=== PATIENT | female | born 1995 | race Caucasian/White ===

== ENCOUNTER → 2022-05-26 08:04 | Outpatient (CLI) | payer OTHER, SELFPAY ==
--- NOTE | ~2022-05-26 | US_ITS ---
EXAMINATION: US right upper quadrant DATE: 05/26/2022 08:29 INDICATION: Right upper quadrant pain TECHNIQUE: Multiple grayscale and Doppler ultrasound images of the abdomen were obtained. COMPARISON: None available FINDINGS: Bowel gas obscures visualization of the pancreas. The visualized portions of the pancreas a re unremarkable. The liver is normal with normal echogenicity and echotexture. No surface nodularity. Normal hepatopetal flow in the main portal vein. The gallbladder is normal with no abnormal wall thi ckening, pericholecystic fluid or stones. The normal common bile duct measures 3 mm. There was no son ographic Denise sign. IMPRESSION: 1. Normal sonographic study of the gallbladder. Reviewed, dictated and finalized at location F.
== END ==
PROVIDERS: PCP Obstetrics & Gynecology Gynecology; Visit Provider Obstetrics & Gynecology Gynecology
DX: R10.11 Right upper quadrant pain (principal)
CPT/HCPCS: 76705

== ENCOUNTER → 2022-07-11 13:20 | Outpatient (CLI) | payer OTHER, SELFPAY ==
--- NOTE | ~2022-07-11 | CT_ITS ---
EXAMINATION: CT abdomen pelvis w con DATE: 07/11/2022 13:54 INDICATION: Right upper quadrant abdominal pain. Elevated serum lipase. TECHNIQUE: Computed tomography (CT) of the abdomen and pelvis was performed with 100 CC Omnipaque 350 intravenous contrast. Automated exposure control and iterative reconstruction technique were employe d. Exam dose: 678.11 mGy-cm total exam DLP. COMPARISON: 05/26/2022 right upper quadrant abdominal ultrasound examination FINDINGS: The lung bases are clear. Heart size is normal. No pericardial or pleural effusion. The liver, gallbladder, bile ducts, spleen, pancreas, pancreatic duct, and adrenal glands and kidneys appear normal. Normal caliber of the abdominal aorta. Approximately 2 cm right ovarian cyst. The uterus and adnexal areas are otherwise unremarkable. Urina ry bladder is relatively evacuated. No bowel obstruction or intraperitoneal free air. Small fat-containing umbilical hernia. Included skeletal structures are unremarkable. No intraperitoneal or retroperitoneal or pelvic mass lesion or adenopathy or ascites is noted. IMPRESSION: 2 cm right ovarian cyst The pancreas appears normal. Normal CT pancreas examination does not exclude pancreatitis. Reviewed, dictated and finalized at Location A. Reviewed, dictated and finalized at location B. TRACER IMPRESSION: 2 cm right ovarian cyst The pancreas appears normal. Normal CT pancreas examination does not exclude pa ncreatitis.
== END ==
PROVIDERS: PCP Family Medicine; Visit Provider Physician Assistant
DX: R10.9 Unspecified abdominal pain (principal); R74.8 Abnormal levels of other serum enzymes; N83.201 Unspecified ovarian cyst, right side
CPT/HCPCS: 74177; Q9967

== ENCOUNTER 2022-09-05 12:23 | Emergency (ER) | payer OTHER, SELFPAY ==
--- NOTE | ~2022-09-05 | CT_ITS ---
EXAMINATION: CT abdomen pelvis w con DATE: 09/05/2022 15:21 INDICATION: Right upper quadrant abdominal pain TECHNIQUE: Computed tomography (CT) of the abdomen and pelvis was performed with 100 mL Omnipaque-350 intravenous contrast. Automated exposure control and iterative reconstruction technique were employe d. The dose-length product was 518.56 mGy-cm. COMPARISON: 07/11/2022 FINDINGS: Lung bases are clear. Heart size is normal. No pericardial or pleural effusion. Liver, gallbladder, s pleen, pancreas, bilateral adrenal glands and kidneys are normal. Bowels including the appendix are n ormal. Bladder, anteverted uterus and bilateral adnexa are unremarkable. No free intraperitoneal gas or fluid. No pathologically enlarged abdominal or pelvic lymphadenopathy. Partially visualized mild l ower thoracic dextrocurvature with minimal lumbar levocurvature. Mild thoracic and minimal lumbar spo ndylosis. IMPRESSION: 1. No acute intra-abdominal/pelvic process. Reviewed, dictated and finalized at location L. K PATROL
--- NOTE | ~2022-09-05 | US_ITS ---
Limited Abdominal Sonogram: Real-time sonographic imaging of the right upper quadrant was performed. Clinical History: Abdominal pain Findings: The liver appears normal with no evidence of mass lesion or bile duct dilatation. Main por coretta vein demonstrates normal direction of flow. The gallbladder is partially distended, and appears n ormal with no evidence of gallstone or wall thickening. The common bile duct measures 3 mm. The visu alized pancreas, aorta, and IVC are unremarkable. Impression: No significant abnormality seen. Reviewed, dictated and finalized at location M. INE TACK PULLER Impression: No significant abnormality seen.
[2022-09-05 13:18] LABS: Basophils Percent Auto 0.2 % (0.2-1.2); Eosinophils Absolute Auto 0.1 K/mm3 (0-0.3); Eosinophils Percent Auto 0.5 % (0-4.4); Hematocrit 39.6 % (37.0-47.0); Hemoglobin 13.3 g/dL (12.0-15.0); Immature Granulocyte Absolute 0.03 K/mm3 (0.00-0.031); Immature Granulocyte Percent A 0.3 % (0-0.5); Immature Platelet Fraction Pct 3.4 % (0.9-11.2); Lymphocytes Absolute Auto 1.95 K/mm3 (0.9-3.2); Lymphocytes Percent Auto 19.8 % (18.3-44.2); Mean Corpuscular HGB Conc 33.6 g/dl (32-36); Mean Corpuscular Hemoglobin 28.9 pg (26-34); Mean Corpuscular Volume 86.1 fl (80-100); Mean Platelet Volume 10.2 fl (7.4-10.4); Monocytes Absolute Auto 0.7 K/mm3 (0.1-0.6); Monocytes Percent Auto 6.7 % (2.6-8.5); Neutrophils Absolute Auto 7.2 K/mm3 (1.3-6.7); Neutrophils Percent Auto 72.5 % (45.5-73.1); Platelet Count Result 271 k/mm3 (150-375); Red Cell Distribution Width 13.1 % (11.5-14.5); White Blood Count 9.9 K/mm3 (4.5-10.0)
[2022-09-05 13:30] LABS: Alanine Aminotransferase 17 U/L (6-35); Albumin Level 4.4 g/dL (3.5-5.1); Alkaline Phosphatase 38 U/L (38-126); Anion Gap 8 mmol/L (8-16); Aspartate Amino Transferase 32 U/L (14-36); Bilirubin,Total 0.5 mg/dL (0.2-1.3); Blood Urea Nitrogen 8 mg/dL (7-17); Calcium 9.6 mg/dL (8.4-10.2); Carbon Dioxide 25 mmol/L (22-30); Chloride 105 mmol/L (98-107); Estimated Glomerular Filt Rate > 60; Glucose 92 mg/dL (65-110); Lipase 143 U/L (23-300); Potassium 4.5 mmol/L (3.4-5.0); Sodium 138 mmol/L (137-145)
--- NOTE | 2022-09-05 13:31 | ED.ABDPAIN ---
HPI - Abdominal Pain General Chief Complaint: Abdominal Pain Stated Complaint: RUQ pain Time Seen by Provider: 09/05/22 12:59 Source: patient Mode of arrival: ambulatory Limitations: no limitations History of Present Illness HPI narrative: Patient is a 27-year-old female who presents to the ED with c/o RUQ pain. Patient reports she has been dealing with pain in her right upper abdomen for the last few months. She has had negative CT scans and ultrasounds of her abdomen/gallbladder. She was scheduled to see a GI specialist on Sunday. Over the last 2 days, patient has had worsening and more persistent pain in her right upper abdomen. Pain radiates to her right mid back and right shoulder. She has been taking Tylenol with minimal relief. She also reports having nausea and diarrhea, denies fever, vomiting, rectal bleeding, urinary symptoms, chest pain, difficulty breathing. Related Data Home Medications Medication Instructions Recorded Confirmed norethindrone 1 mg-ethinyl 1 tablet PO DAILY 06/28/22 06/28/22 estradiol 20 mcg (21)-iron 75 mg (7) tablet (Blisovi Fe 09/01 ([birth year])) rizatriptan 10 mg tablet See Rx Instructions PO .COMPLEX 06/28/22 06/28/22 spironolactone 100 mg tablet 100 mg PO BID 06/28/22 06/28/22 Allergies Allergy/AdvReac Type Severity Reaction Status Date / Time steroids AdvReac Severe heartburn Uncoded 09/05/22 12:24 Review of Systems Review of Systems: CONSTITUTIONAL: Denies fever, chills, or sweats. CARDIOVASCULAR: Denies chest pain. RESPIRATORY: Denies cough or dyspnea. GASTROINTESTINAL: See HPI. GENITOURINARY: Denies dysuria or hematuria. SKIN: Denies rash or itching. MUSCULOSKELETAL: See HPI. All systems reviewed & are unremarkable except as noted in HPI and below PMFSH Past Medical History Medical History Chiari malformation Surgical History Surgical History History of tonsillectomy Family History Family History Father DVT of leg (deep venous thrombosis) Grandparent Diabetes mellitus Grandparent Leukemia Social History Social History Smoking status: Never smoker Alcohol intake: current Alcohol use details: socially; once a month Substance use: never Substance use type: does not use Occupation/Education: occupation Additional occupation/education comments: IT Exam Narrative: GENERAL: Well appearing, obese, non-toxic, in no acute distress. HEAD: Normocephalic, atraumatic. NECK: Supple. No adenopathy, no masses. RESPIRATORY: Airway patent, respirations nonlabored. Clear to auscultation bilaterally, no rales, rhonchi, wheezing. CARDIOVASCULAR: Regular rate and rhythm without murmurs, rubs, or gallops. Peripheral pulses 2+ and equal bilaterally. ABDOMINAL: Soft, tenderness in epigastric region and right upper quadrant, no significant worsening of tenderness with Denise sign testing, no cessation of inspiration, nondistended, no hepatosplenomegaly. Normoactive BS. MUSCULOSKELETAL: Moves all extremities. Strength/ROM intact without gross deformities. SKIN: Warm, dry, normal color. No rashes. NEURO: A&O X3. Speech clear. Cranial nerves II-XII grossly intact. Steady gait. No ataxic movements. PSYCHIATRIC: Appropriate mood and affect. Normal interaction. MDM - Abdominal Pain MDM Narrative Medical decision making narrative: Patient presented to ED with 2-day history of right upper quadrant abdominal pain, history of recent similar pain as well, concerned for GB etiology. Vitals stable upon arrival. Afebrile. No leukocytosis, WBC 9.9. CMP unremarkable. Normal LFTs. Lipase within normal limits. UA with 1+ leuks, 4-6 wbc. Patient without urinary symptoms at this time, will send for culture to determine need for Tx, doubt this is causin
[2022-09-05] MEDS: SODIUM CHLORIDE 0.9% IV 1,000 ML 999 ML IV CONT (13:39)
[2022-09-05] MEDS: ONDANSETRON INJ 4 MG/2 ML VIAL IV PUSH (13:39)
[2022-09-05] MEDS: MORPHINE SULFATE (*CRX) 4 MG/ML INJ IV PUSH (13:40)
[2022-09-05 14:55] LABS: Appearance Urine Slightly Cloudy (Clear); Bilirubin Urine Negative (Negative); Blood Urine Negative (Negative); Color Urine Yellow (Yellow); Glucose Urine UA Negative (Negative); Ketones Urine Negative (Negative); Leukocyte Esterase Ur 1+ LEU/UL (Negative); Nitrate Urine Negative (Negative); Protein Urine Negative (Negative); Urobilinogen Urine 0.2 mg/dL (<2.0); pH Urine 6.5 (5.0-9.0)
[2022-09-05 15:03] LABS: Bacteria Urine Trace /hpf; Mucus Urine Rare /lpf; RBC Urine 0-2 /hpf (0-2); Squamous Epithelial Cell Urine Few /hpf (Few)
[2022-09-05 15:04] LABS: Add Urine Microscopic? YES
[2022-09-05 15:05] LABS: D Dimer 0.35 ug/mL (<0.48)
== END 2022-09-05 16:19 | disposition home or self-care (01) ==
PROVIDERS: Emergency Medicine; Emergency Provider Physician Assistant; PCP Family Medicine
DX: R10.11 Right upper quadrant pain (principal)
CPT/HCPCS: 36415; 74177; 76705; 80053; 81001; 81025; 83690; 85025; 85055; 85380; 87086; 87088; 96361; 96374; 96375; 99284; J2270; J2405; J7030; Q9967

== ENCOUNTER 2022-09-18 09:45 | Outpatient (CLI) | payer OTHER, SELFPAY ==
--- NOTE | ~2022-09-18 | NM_ITS ---
EXAMINATION: NM hepatobiliary wo pharm DATE: 09/18/2022 12:21 INDICATION: Postprandial right upper quadrant abdominal pain. COMPARISON: CT and ultrasound 09/05/2022 TECHNIQUE: 4.9 mCi Tc-99m mebrofenin (Choletec) was administered intravenously. Scintigraphic images of the abdomen were obtained for one hour. Then, the patient drank 8 oz Ensure, and imaging was cont inued for 60 minutes. FINDINGS: There is normal clearance of radiotracer from the blood pool. There is homogeneous tracer u ptake by the liver. Activity progresses to the bowel and gallbladder. Gallbladder ejection fraction (GBEF) was 35%. Note that with this technique, normal GBEF >= 33%. IMPRESSION: 1. Normal hepatobiliary scintigraphy. Reviewed, dictated and finalized at location A. HAND
== END 2022-09-18 09:46 | disposition home or self-care (01) ==
PROVIDERS: PCP Family Medicine; Visit Provider Nurse Practitioner Family
DX: R10.11 Right upper quadrant pain (principal)
CPT/HCPCS: 78226; A9537

== ENCOUNTER 2022-10-04 00:31 | Day surgery (SDC) | payer OTHER, SELFPAY ==
[2022-09-18 14:26] VITALS: BMI 31.4
[2022-10-04 12:45] VITALS: BP 123/69; PULSE 70; RESP 14; TEMP 36.2; O2SAT 100
[2022-10-04] MEDS: LACTATED RINGERS 1,000 ML 150 ML IV CONT (12:54)
--- NOTE | 2022-10-04 12:55 | WPDANESEPPF ---
Anes - Initial Pre Proc Eval Procedure: Operation Date: 10/04/22 14:00 Proposed Procedures p Esophagogastroduodenoscopy - Mian Cheng MD Date/Time: 10/04/22 12:55 Surgeon: Mian Cheng MD Pre Op Diagnosis: Rt Upper Quad pain Patient Data Age: 27 Gender: F Height: 1.57 m Weight: 78.1 kg Last Vital Signs Temp 97.1 F L 10/04/22 12:45 Pulse 70 10/04/22 12:45 Resp 14 10/04/22 12:45 BP 123/69 10/04/22 12:45 Pulse Ox 100 10/04/22 12:45 O2 Del Method Room Air 10/04/22 12:45 Allergies Allergy/AdvReac Type Severity Reaction Status Date / Time steroids AdvReac Severe Gastrointestinal Uncoded 10/04/22 12:44 Upset Home Medications Medication Instructions Recorded Confirmed Type norethindrone 1 mg-ethinyl 1 tablet PO DAILY 06/28/22 09/18/22 History estradiol 20 mcg (21)-iron 75 mg (7) tablet (Blisovi Fe 09/01 ()) rizatriptan 10 mg tablet See Rx Instructions PO .COMPLEX 06/28/22 09/18/22 History PRN Headache spironolactone 100 mg tablet 100 mg PO BID 06/28/22 09/18/22 History ondansetron 4 mg disintegrating 4 mg PO Q8H PRN nausea and 09/05/22 09/18/22 Rx tablet vomiting #20 tabs Patient hx anesthesia problems: none Family hx anesthesia problems: none Results Review: All pre-operative results and documents have been reviewed as part of the pre-operative evaluation. [facility] Past Medical History Medical History (Updated 09/11/22 @ 15:13 by José Smith) Acute migraine Chiari malformation Surgical History Surgical History (Updated 09/11/22 @ 15:14 by José Smith) H/O brain surgery History of tonsillectomy Family History Family History Father DVT of leg (deep venous thrombosis) Grandparent Diabetes mellitus Grandparent Leukemia Social History Social History (Reviewed 09/05/22 @ 13:38 by CANDIDA Mijares Smoking status: Never smoker Alcohol intake: current Alcohol use details: socially; once a month Substance use: never Substance use type: does not use Occupation/Education: occupation Additional occupation/education comments: IT Spiritual care concerns: No Anes - Eval Final PreProcedure Day of Procedure 10/04/22 12:55 Patient weight: obese Heart: regular rate and rhythm Lungs: clear to auscultation Neurological: alert and oriented Last oral intake: >/= 8 hours ASA classification: II Emergent: no Anesthetic plan: proceed Anesthesia type and monitoring: general GIVS and standard monitoring Results Review: All pre-operative results and documents have been reviewed as part of the pre-operative evaluation. Informed Consent: The patient's anesthetic plan and its attendant risks and benefits were discussed with the patient/family/POA. Questions were solicited and answers provided to the satisfaction of the patient/family/POA.
--- NOTE | 2022-10-04 13:25 | WPDHPUPDATE1 ---
History and Physical Update Update Date/Time: 10/04/22 13:25 History and Physical has been reviewed, including an updated exam of the patient. There are NO changes in the patient's condition. Risks, benefits, and alternatives have been discussed and questions answered. Patient agrees to proceed with procedure.
[2022-10-04] MEDS: BENZOCAINE (*SP) 60 ML SPRAY CAN (HURRICAINE) 1 SPRAY MUCOUS MEM (13:26)
[2022-10-04 13:36] VITALS: BP 108/66; PULSE 90; RESP 22; O2SAT 100
[2022-10-04 13:46] VITALS: BP 101/68; PULSE 78; RESP 22; O2SAT 100
[2022-10-04 13:56] VITALS: BP 128/84; PULSE 80; RESP 22; O2SAT 100
== END 2022-10-04 14:07 | disposition home or self-care (01) ==
PROVIDERS: PCP Family Medicine; Visit Provider Internal Medicine Gastroenterology
PROC: 0DJ08ZZ Inspection of Upper Intestinal Tract, Via Natural or Artificial Opening Endoscopic (ICD-10-PCS; CPT 43235; principal; 2022-10-04 14:00)
DX: R10.11 Right upper quadrant pain (principal); E66.9 Obesity, unspecified; Z68.31 Body mass index [BMI] 31.0-31.9, adult
CPT/HCPCS: 43239; 88305; J2704; J7120

== ENCOUNTER 2022-10-16 15:22 | Outpatient (CLI) | payer OTHER, SELFPAY ==
[2022-10-16 15:53] LABS: Amylase 87 U/L (30-110)
== END 2022-10-16 15:23 | disposition home or self-care (01) ==
LOC: ANHSURGERY 15:26
PROVIDERS: PCP Family Medicine; Visit Provider Surgery
DX: K81.1 Chronic cholecystitis (principal); Z01.818 Encounter for other preprocedural examination
CPT/HCPCS: 36415; 82150; 86850; 86900; 86901

== ENCOUNTER 2022-10-18 00:51 | Day surgery (SDC) | payer OTHER, SELFPAY ==
[2022-10-12 12:33] VITALS: BMI 31.1
--- NOTE | 2022-10-12 12:38 | PC.NURSE ---
Report to the Outpatient Waiting Room, entrance under the green pavilion located off [facility], at time 10:00 on date 10/18/22. Planned Procedure Time: 12:00. Time changes happen often and if your time is changed the preop area will call you the afternoon before. - You and your visitor will be asked to self-screen and do not enter if you have any COVID symptoms. - Only one visitor is requested with a max of two and NO children visitors are allowed at this time. - The patient visitor may be requested to leave or wait in car when not with patient due to distancing restrictions. - A mask is optional within the hospital at this time. Patients may have clear liquids (water, carbonated beverages, clear teas, apple juice) until 3 hours prior to surgery (9:00) with a maximum of 20 ounces. - No food from midnight until time of surgery Take the following medications with a SIP of water the morning of surgery: NONE DO NOT STOP ANY OF YOUR OTHER PRESCRIPTION MEDICATIONS PRIOR TO SURGERY?EXCEPT THE FOLLOWING Medications to discontinue per physician: N/A Date to take last dose: N/A Please no make-up, nail pashto, hairspray, perfume, deodorant, or body powder the day of surgery. No jewelry (including any body piercings) or valuables the day of surgery, leave them at home. Please take a shower or bath the night before, or the morning of, surgery with an antibacterial soap (HIBICLENS). Wear comfortable, loose fitting clothing. - Jewelry must be removed prior to entering the operating room. Rings and piercings that are not removed may be cut off. - The hospital will not accept responsibility for valuables. - Please leave all valuables, including medications, at home the day of surgery. If you are going home after surgery, a licensed wrecker driver must drive you home. - NO public transportation without another adult if you receive anesthesia. - We recommend that an adult stay with you for 24 hours following discharge. - We also recommend that you do not drive, make important decision, drink alcoholic beverages, or take any drugs that were not prescribed by your health care provider for at least 24 hours after your discharge time. Follow any additional instructions given to you from your surgeon. If you or anyone in your household have experienced Covid symptoms in the past week, please notify your surgeon or the nurse liaison at the phone number below for possible testing. Telephone instructions given to PT - BARRY EAVES and asked if any additional questions and then verbalized understanding. Patient advised to call surgeon office or pre surgery nurse liaison [phone] if any additional questions.
[2022-10-18] VITALS (10 sets, daily range): BP systolic 118–133; BP diastolic 61–84; PULSE 59–101; RESP 12–20; TEMP 36.3–36.9; O2SAT 97–100; BMI 31.7
--- NOTE | 2022-10-18 10:26 | WPDHPUPDATE1 ---
History and Physical Update Update Date/Time: 10/18/22 10:26 History and Physical has been reviewed, including an updated exam of the patient. There are NO changes in the patient's condition. Risks, benefits, and alternatives have been discussed and questions answered. Patient agrees to proceed with procedure.
[2022-10-18] MEDS: ACETAMINOPHEN 500 MG TABLET 1000 MG PO (10:54)
[2022-10-18] MEDS: KETOROLAC 15 MG/ML VIAL (*BKC) IV PUSH (10:54)
--- NOTE | 2022-10-18 11:03 | P.PNAN_ITS ---
Anes - Initial Pre Proc Eval Procedure: Operation Date: 10/18/22 12:00 Proposed Procedures p Laparoscopic Cholecystectomy - Disha Rosas MD Date/Time: 10/18/22 11:03 Surgeon: Disha Rosas MD Pre Op Diagnosis: chronic cholecystitis Patient Data Age: 27 Gender: F Height: 1.57 m Weight: 78.8 kg Last Vital Signs Temp 36.9 C 10/18/22 10:21 Pulse 71 10/18/22 10:21 Resp 15 10/18/22 10:21 BP 120/65 10/18/22 10:21 Pulse Ox 100 10/18/22 10:21 O2 Del Method Room Air 10/18/22 10:21 Allergies Allergy/AdvReac Type Severity Reaction Status Date / Time steroids AdvReac Severe Gastrointestinal Uncoded 10/12/22 12:33 Upset Home Medications Medication Instructions Recorded Confirmed Type norethindrone 1 mg-ethinyl 1 tablet PO HS 06/28/22 10/12/22 History estradiol 20 mcg (21)-iron 75 mg (7) tablet (Blisovi Fe 09/01 ()) rizatriptan 10 mg tablet See Rx Instructions PO .COMPLEX 06/28/22 10/12/22 History PRN Headache spironolactone 100 mg tablet 100 mg PO BID 06/28/22 10/12/22 History Patient hx anesthesia problems: none Family hx anesthesia problems: none Results Review: All pre-operative results and documents have been reviewed as part of the pre- operative evaluation. [facility] Past Medical History Medical History Acute migraine Chiari malformation Postprandial RUQ pain Surgical History Surgical History H/O brain surgery History of tonsillectomy Family History Family History Father DVT of leg (deep venous thrombosis) Grandparent Diabetes mellitus Grandparent Leukemia Social History Social History Smoking status: Never smoker Alcohol intake: current Alcohol use details: 1-2/MONTH Substance use: never Substance use type: does not use Living arrangements: alone Occupation/Education: occupation Additional occupation/education comments: IT Spiritual care concerns: No Anes - Eval Final PreProcedure Day of Procedure 10/18/22 11:03 Patient weight: obese Heart: regular rate and rhythm Lungs: clear to auscultation Airway: Mallampati scale class II Neurological: alert and oriented Last oral intake: >/= 8 hours ASA classification: II Emergent: no Anesthetic plan: proceed Anesthesia type and monitoring: general ETT and standard monitoring Results Review: All pre-operative results and documents have been reviewed as part of the pre- operative evaluation. Informed Consent: The patient's anesthetic plan and its attendant risks and benefits were discussed with the patient/family/POA. Questions were solicited and answers provided to the satisfaction of the patient/family/POA.
[2022-10-18] MEDS: LACTATED RINGERS 1,000 ML 30 ML IV CONT ×2 (11:06→12:35)
[2022-10-18] MEDS: SCOPOLAMINE 1.5 MG PATCH TRANSDERM (11:22)
[2022-10-18] MEDS: ceFAZolin 2 GM/D5W 50 ML 2 GM/50 ML BAG IVPB (11:53)
[2022-10-18] MEDS: BUPIVACAINE/EPINEPHRINE 0.5% 50 ML VIAL 30 ML INFILTRATE (12:10)
--- NOTE | 2022-10-18 12:34 | W.PM.PROC2 ---
Procedure Note - Detailed Date of Procedure 10/18/22 Pre-op Diagnosis chronic cholecystitis Post-op Diagnosis Same Procedure Performed Laparoscopic cholecystectomy Surgeon Disha Rosas MD Anesthesia General Indications 27-year-old female presented to the office complaining of postprandial right upper quadrant abdominal pain associated with nausea and vomiting. Workup including imaging significant for chronic cholecystitis. Findings chronic cholecystitis Description of Procedure The patient was taken to the operating room placed in the supine position. After adequate induction of general anesthesia, the patient was prepped and draped in normal sterile fashion. A time-out was then performed to verify the patient's identity as well as the procedure being performed. I then made a 5 mm incision in the infraumbilical region. Through this, a Veress needle was placed into the peritoneal cavity and CO2 gas was then insufflated. After adequate pneumoperitoneum was achieved, the Veress needle was removed and a 5 mm optiview trocar was placed through this incision under direct visualization. I then placed the laparoscope through this trocar site and under direct visualization placed a further 12 mm subxiphoid port as well as 2 additional 5 mm ports in the right upper abdomen. The gallbladder was then identified and was noted to be moderately inflamed and distended. I was able to place a grasper at the dome of the gallbladder and this was retracted anterior and cephalad up over the liver. A 2nd retractor was then placed at the infundibulum and retracted laterally, this allowed visualization of the triangle of Calot. I then was able to visualize the cystic duct in its entirety from its proximal insertion into the gallbladder, to its distal junction with the common hepatic/common bile duct junction. At this point, I carefully skeletonized the proximal cystic duct with the [place] dissector. I then clipped and transected the proximal cystic duct. Next I visualized the cystic artery. Again the artery was skeletonized, clipped, and transected. I then used the Bovie cautery to take down the peritoneal attachments of the gallbladder off the liver bed. Once the gallbladder specimen was completely detached, an endo-pouch was placed through the 12 mm port site. I then placed the gallbladder specimen into the Endo pouch and removed the endo-pouch from the 12 mm port site. The specimen will now be sent to pathology for further review. I then copiously irrigated the right upper quadrant. Hemostasis was noted in the liver bed, the clips were noted to be in good position on both the cystic duct stump and the cystic artery stump. No other pathology was noted in the right upper quadrant. I then moved the laparoscope to the subxiphoid port. No iatrogenic injury or other pathology was noted in the lower abdomen. I then closed the 12 mm trocar site under direct visualization using the Cristhian cone and 0 Vicryl suture. At this point, the abdomen was desufflated and all ports removed. All port sites were then closed with 4.O Monocryl subcuticular sutures. Dermabond was placed on each incision. The patient tolerated the procedure well, was extubated in the operating room postoperative and will be transferred to the recovery room in stable condition. Estimated Blood Loss 5 Drains No Packing No Pathology Yes Complications No immediate complications Condition Stable Disposition PACU [facility] Billing Surgery - Charge Forward: Surgery Billing
[2022-10-18] MEDS: fentaNYL CITRATE INJ (*CRX) 100 MCG/2 ML VIAL 25 MCG IV PUSH ×4 (12:59→13:28)
[2022-10-18] MEDS: oxyCODONE HCL (*CRX) 5 MG TAB IR PO (13:42)
[2022-10-18] MEDS: ONDANSETRON INJ 4 MG/2 ML VIAL IV PUSH (14:04)
== END 2022-10-18 14:57 | disposition home or self-care (01) ==
PROVIDERS: PCP Family Medicine; Visit Provider Surgery
PROC: 0FT44ZZ Resection of Gallbladder, Percutaneous Endoscopic Approach (ICD-10-PCS; CPT 47562; principal; 2022-10-18 12:00)
DX: K81.1 Chronic cholecystitis (principal); E66.9 Obesity, unspecified; Z68.31 Body mass index [BMI] 31.0-31.9, adult
CPT/HCPCS: 47562; 36415; 82150; 86850; 86900; 86901; 88304; A9270; J0690; J1100; J1170; J1885; J2250; J2405; J2704; J2710; J3010; J7030; J7120

== ENCOUNTER 2022-10-30 17:43 | Emergency (ER) | payer OTHER, SELFPAY ==
[2022-10-30 18:01] VITALS: BP 134/96; PULSE 109; RESP 20; TEMP 37.2; O2SAT 100
[2022-10-30] MEDS: TETANUS,DIPHTHERIA,AC PERTUSSIS ADULT (0.5 ML) BOOSTRIX IM (18:30)
[2022-10-30] MEDS: LIDOCAINE HCL 1% LOCAL INJ 10 ML VIAL 5 ML INFILTRATE (19:28)
--- NOTE | 2022-10-30 19:53 | ED.WOUNDLAC ---
HPI - Wound/Laceration General Chief Complaint: Wound/Laceration <Altagracia Jones PA-C - Last Filed: 10/30/22 21:17> Stated Complaint: right thumb lac <BEAU Mijares Last Filed: 10/30/22 21:17> Time Seen by Provider: 10/30/22 18:08 <BEAU Mijares Last Filed: 10/30/22 21:17> Source: patient <BEAU Mijares Last Filed: 10/30/22 21:17> Mode of arrival: ambulatory <BEAU Mijares Last Filed: 10/30/22 21:17> Limitations: no limitations <BEAU Mijares Last Filed: 10/30/22 21:17> History of Present Illness HPI narrative: Patient is a 27-year-old female who presents the ED with report of laceration to her right medial thumb. Patient reports she was slicing vegetables using a mandolin slicer when she sustained a laceration to her right medial thumb. She was unable to control the bleeding at home which prompted her presentation. Patient denies any other injuries. Denies numbness. Tetanus status unknown. <BEAU Mijares Last Filed: 10/30/22 21:17> Related Data Home Medications: Home Medications Medication Instructions Recorded Confirmed norethindrone 1 mg-ethinyl 1 tablet PO HS 06/28/22 10/18/22 estradiol 20 mcg (21)-iron 75 mg (7) tablet ([place] Fe 09/01 ()) rizatriptan 10 mg tablet See Rx Instructions PO .COMPLEX 06/28/22 10/18/22 PRN Headache spironolactone 100 mg tablet 100 mg PO BID 06/28/22 10/18/22 <BEAU Mijares Last Filed: 10/30/22 21:17> Allergies/Adverse Reactions: Allergies Allergy/AdvReac Type Severity Reaction Status Date / Time steroids AdvReac Severe Gastrointestinal Uncoded 10/30/22 17:46 Upset <BEAU Mijares Last Filed: 10/30/22 21:17> Review of Systems Review of Systems: CONSTITUTIONAL: Denies fever, chills, or sweats. SKIN: See HPI. NEUROLOGIC: Denies tingling, numbness, or weakness. <Altagracia Jones PA-C - Last Filed: 10/30/22 21:17> All systems reviewed & are unremarkable except as noted in HPI and below <Altagracia Jones PA-C - Last Filed: 10/30/22 21:17> [facility] Past Medical History Medical History: Medical History Acute migraine Chiari malformation Postprandial RUQ pain <Altagracia Jones PA-C - Last Filed: 10/30/22 21:17> Surgical History Surgical History: Surgical History H/O brain surgery History of tonsillectomy <Altagracia Jones PA-C - Last Filed: 10/30/22 21:17> Family History Family History: Family History Father DVT of leg (deep venous thrombosis) Grandparent Diabetes mellitus Grandparent Leukemia <Altagracai Jones PA-C - Last Filed: 10/30/22 21:17> Social History Social History: Social History Smoking status: Never smoker Alcohol intake: current Alcohol use details: 1-2/MONTH Substance use: never Substance use type: does not use Living arrangements: alone Occupation/Education: occupation Additional occupation/education comments: IT Spiritual care concerns: No <Altagracia Jones PA-C - Last Filed: 10/30/22 21:17> Exam Narrative: GENERAL: Well appearing, obese, non-toxic, in no acute distress. HEAD: Normocephalic, atraumatic. NECK: Supple. No adenopathy, no masses. RESPIRATORY: Airway patent, respirations nonlabored. CARDIOVASCULAR: Regular rate and rhythm without murmurs, rubs, or gallops. Radial pulses 2+ and equal bilaterally. MUSCULOSKELETAL: Moves all extremities. Strength/ROM intact without gross deformities. SKIN: Warm, dry, normal color. No rashes. 1.5cm fairly superficial laceration to medial edge of R 1st distal digit. No nail involvement. Mild bleeding presen
== END 2022-10-30 20:17 | disposition home or self-care (01) ==
PROVIDERS: Emergency Provider Physician Assistant; PCP Family Medicine
DX: S61.011A Laceration without foreign body of right thumb without damage to nail, initial encounter (principal); W26.8XXA Contact with other sharp object(s), not elsewhere classified, initial encounter; Z23 Encounter for immunization
CPT/HCPCS: 12001; 90715; 99282

== ENCOUNTER → 2022-11-08 14:45 | Outpatient (CLI) | payer OTHER, SELFPAY ==
--- NOTE | ~2022-11-08 | CT_ITS ---
EXAMINATION: CT abdomen wo con DATE: 11/08/2022 15:00 INDICATION: Right upper quadrant abdominal pain following laparoscopic cholecystectomy on 10/18/2022 TECHNIQUE: Computed tomography (CT) of the abdomen and pelvis was performed without intravenous contr ast. Automated exposure control and iterative reconstruction technique were employed. Exam dose: 359 .86 mGy-cm total exam DLP. COMPARISON: 09/05/2022 CT abdomen pelvis FINDINGS: Normal heart size. No pericardial or pleural effusion. The lung bases are clear of infiltra te or consolidation. Status post cholecystectomy. The liver, spleen, pancreas, and adrenal glands and kidneys are unremark able on this limited noncontrast examination. Normal caliber of the abdominal aorta. No intraperitone al or retroperitoneal mass lesion or adenopathy or ascites. There are some shoddy nonenlarged right l ower quadrant lymph nodes which may be due to mesenteric adenitis. No bowel obstruction, bowel wall t hickening, pneumatosis or intraperitoneal free air is detected. IMPRESSION: Right lower quadrant mesenteric adenitis is suggested Status post cholecystectomy; no abnormal fluid collections are noted in the right upper quadrant chol ecystectomy bed. Reviewed, dictated and finalized at [facility]. Reviewed, dictated and finalized at [facility]. IMPRESSION: Right lower quadrant mesenteric adenitis is suggested Status post cholecystectomy; no abnormal fluid collections are noted in the rig ht upper quadrant cholecystectomy bed.
== END ==
PROVIDERS: PCP Family Medicine; Visit Provider Surgery
DX: R10.11 Right upper quadrant pain (principal); R93.5 Abnormal findings on diagnostic imaging of other abdominal regions, including retroperitoneum
CPT/HCPCS: 74150